=== PATIENT | male | born 1980 | race Caucasian/White ===

== ENCOUNTER 2016-11-02 17:21 | Emergency (ER) | payer OTHER ==
--- NOTE | 2016-11-02 20:18 | ED ORDER SUMMARY ---
..... Patient: SHYANN VERGARA OrderSheet [facility] VisitID: [id number] [address] [place] [address] 36y, M Registration Date/Time: 11/02/2016 ORDER SHEET Weight: 97.9 kg (stated) Allergies: None GENERAL ORDERS: US Scrotum/Testicular Urgent (17:53 11/02/2016 HBivens A.R.N.P.) (Ack 18:13 RKaruga) (19:18 RFay) CBC w Diff Urgent (17:53 11/02/2016 HBivens A.R.N.P.) (Ack 18:13 RKaruga) (19:28 SRoberts R.N.) CMP Urgent (17:53 11/02/2016 HBivens A.R.N.P.) (Ack 18:13 RKaruga) (19:28 SRoberts R.N.) UA-Culture if indicated Urgent (17:53 11/02/2016 HBivens A.R.N.P.) (Ack 18:13 RKaruga) (20:29 JDeElena R.N.) MEDICATION ORDERS: IV FLUIDS: ORDER SHEET NOTES: [Electronically signed by Tramaine Bishop R.N. (20:45 11/02/2016)] [Electronically signed by Amada TrinidadR.N.PYamini (22:02 11/02/2016)] [Electronically locked/signed by Tramaine Bishop R.N. (20:45 11/02/2016)]
--- NOTE | 2016-11-02 20:18 | ED CLINICAL REPORT ---
Clinical Report - Physicians/Mid Levels [facility] [address] [place] [address] 11/02/2016 17:23 Patient: SHYANN VERGARA Time Seen: 17:29; upon arrival, initial patient contact, initial documentation, patient care assumed. Arrived- By private vehicle. Historian- patient and significant other. HISTORY OF PRESENT ILLNESS Chief Complaint: RIGHT TESTICULAR PAIN. This started about 45 days ago and is still present (came back last night). The problem is described as mild. It was abrupt in onset and has been intermittent. No penile discharge, discomfort with urination, urinary frequency, urgency of urination or Mobley catheter problem. No inguinal swelling or problem with the foreskin. He has had mild testicular pain, involving the right testicle with swelling. No redness. Able to void. Not voiding only small amounts. The patient has had unprotected intercourse with a single partner several times. Similar symptoms previously: Frequently, as bad. Recent medical care: The patient was seen recently in the office. ( was seen x3 at [facility], blood and urine done, can't find what is wrong, urine showed blood). REVIEW OF SYSTEMS No fever, flank pain, hematuria, abdominal pain or vomiting. No diarrhea, chest pain or difficulty breathing. All systems otherwise negative, except as recorded above. PAST HISTORY See nurses notes. ( PROBLEMS: MRSA Infection. Pneumonia. Vasectomy. --17:54 Angelo Davenport R.N.). SOCIAL HISTORY Never smoker. Occasional alcohol use. No drug use. No recent travel. Is a local resident. FAMILY HISTORY Negative. ADDITIONAL NOTES The nursing notes have been reviewed with agreement regarding the chief complaint, HPI, ROS, PMH and patient medications and allergies. PHYSICAL EXAM Vital Signs: 11/02/2016 17:48 BP: 123/74. HR: 77. RR: 20. O2 saturation: 97%. Temp: 98.7 F. Have been reviewed as normal and appear to be correct. Appearance: Alert. Oriented X3. No acute distress. ENT: Normal external inspection. Pharynx normal. Neck: Neck supple. CVS: Heart sounds normal. Respiratory: No respiratory distress. Breath sounds normal. Abdomen: Soft and nontender. Bowel sounds normal. No organomegaly. No mass. Back: Normal external inspection. : Normal genitalia. Testes descended. (security assessor RN Angelo). Skin: Skin warm and dry. Normal skin color. No rash. Normal skin turgor. Extremities: Extremities exhibit normal ROM. No lower extremity edema. Neuro: Oriented X 3. No motor deficit. No sensory deficit. LABS, X-RAYS, AND EKG Testicular Scan: Normal study. Normal. (verbal report from [employer]). Interpretation time: 1908. Laboratory Tests: UA-Culture if indicated: (SARAH: 11/02/2016 18:15) ( [facility] 11/02/2016 20:02) Final results Test Result Flag Units (Reference) URINE COLOR YELLOW URINE APPEARANCE CLEAR URINE GLUCOSE NEGATIVE (NEGATIVE) URINE BILIRUBIN NEGATIVE (NEGATIVE) URINE KETONE NEGATIVE (NEGATIVE) URINE SPECIFIC GRAVITY 1.020 (1.010-1.030) URINE PH 6.5 (5.0-8.0) URINE PROTEIN NEGATIVE (NEGATIVE) URINE UROBILINOGEN 0.2 EU/dL (0.2-1.0) URINE NITRITE NEGATIVE (NEGATIVE) URINE BLOOD 1+ (NEGATIVE) URINE LEUK ESTERASE NEGATIVE (NEGATIVE) URINE RBC 0-1 rbc/hpf (0-1) URINE WBC RARE wbc/hpf (0-1) URINE EPITHELIAL CELLS RARE EPI/hpf (0-5) URINE BACTERIA NONE SEEN (NONE SEEN) URINE COMMENT CULT NOT INDICATED URINE CULTURES ARE SET-UP BASED ON THE FOLLOWING CRITERIA:POSITIVE NITRITEPOSITIVE LEUKOCYTE ESTERASEGREATER THAN 10 WHITE BLOOD CELLSMODERATE (2+) OR GREATER BACTERIA CBC w Diff: (SARAH: 11/02/2016 18:15) ( [facility] 11/02/2016 18:43) Final results Test Result Flag Units (Reference) WHITE BLOOD COUNT 6.6 K/uL (4.5-11.5) RED BLOOD COUNT 4.90 M/uL (4.50-5.90) HEMOGLOBIN 14.4 gm/dL (13.5-17.5) HEMATOCRIT 41.9 % (41.0-53.0) MEAN CELL VOLUME 86 fL (80-100) MEAN CORPUSCULAR HGB 29 pg (26-34) MEAN CORPUSCULAR HGB CONC 34 g/dL (31-37) RED CELL DISTRIBUTION WIDTH 12.8 % (11.6-14.8) PLATELET COUNT 273 K/uL (150-400) NEUTROPHIL % 53.4 % (50-75) LYMPH % 35.3 % (25-40) MONO % 9.3 % (3-14) EOSINOPHIL % 1.4 % (0-4) BASOPHIL % 0.6 % (0-2) CMP: (SARAH: 11/02/2016 18:15) ( MsgRcvd 11/02/2016 18:55) Final results Test Result Flag Units (Reference) GLUCOSE 115 H mg/dL (70-110) BUN 12 mg/dL (7-18) CREATININE 0.9 mg/dL (0.6-1.3) Estimated GFR >60 mL/min Estimated GFR- >60 mL/min Note: Persistent reduction over 3 months in eGFR<60 mL/min/1.73 m2 defines CKD. Patients with eGFR values>=60 mL/min/1.73 m2 may also have CKD if evidence ofpersistent proteinuria. Additional information may be foundat www.kidney.org. SODIUM 144 mmol/L (136-145) POTASSIUM 4.1 mmol/L (3.5-5.1) CHLORIDE 107 mmol/L (98-107) CARBON DIOXIDE 28 mmol/L (21-32) CALCIUM 8.3 L mg/dL (8.5-10.1) TOTAL PROTEIN 7.0 g/dL (6.4-8.2) ALBUMIN 3.9 g/dL (3.3-5.0) BILIRUBIN, TOTAL 0.3 mg/dL (0.0-1.0) ALKALINE PHOSPHATASE 72 U/L (46-116) AST (SGOT) 18 U/L (15-37) ALT (SGPT) 43 U/L (12-78) . PROGRESS AND PROCEDURES Patient and family counseled in person regarding the patient's stable condition, test results and diagnosis. Differential Diagnosis: Other possible considerations: testicular torsion, epidydimitis, prostatitis, uti, kidney stone. Above considerations are based on history, physical exam and laboratory data. Differential diagnosis was discussed with patient. Disposition: Discharged home in good and unchanged condition (20:18). Condition: good and stable. CLINICAL IMPRESSION Acute pain in the right testicle. INSTRUCTIONS Warnings: GENERAL WARNINGS: Return or contact your physician immediately if your condition worsens or changes unexpectedly, if not improving as expected, or if other problems arise. Specifically return if problem worsens. Understanding of the discharge instructions verbalized by patient. Follow-up with: Brayden Martines MD, Urology, , [address] [address]; Maikel Morgan MD, Urology, , [address] [address] Follow up in about three days as needed. Call for an appointment. Summary of care provided to patient. (Electronically signed by Amada Trinidad A.R.N.P. 11/02/2016 22:02)
--- NOTE | 2016-11-02 20:18 | ED ORDER SUMMARY ---
..... Patient: SHYANN VERGARA OrderSheet [facility] VisitID: [id number] [address] [place] [address] 36y, M Registration Date/Time: 11/02/2016 ORDER SHEET Weight: 97.9 kg (stated) Allergies: None GENERAL ORDERS: US Scrotum/Testicular Urgent (17:53 11/02/2016 HBivens A.R.N.P.) (Ack 18:13 RKaruga) (19:18 RFay) CBC w Diff Urgent (17:53 11/02/2016 HBivens A.R.N.P.) (Ack 18:13 RKaruga) (19:28 SRoberts R.N.) CMP Urgent (17:53 11/02/2016 HBivens A.R.N.P.) (Ack 18:13 RKaruga) (19:28 SRoberts R.N.) UA-Culture if indicated Urgent (17:53 11/02/2016 HBivens A.R.N.P.) (Ack 18:13 RKaruga) (20:29 JDeElena R.N.) MEDICATION ORDERS: IV FLUIDS: ORDER SHEET NOTES: [Electronically signed by Tramaine Bishop R.N. (20:45 11/02/2016)] [Electronically signed by Amada TrinidadR.N.PYamini (22:02 11/02/2016)] [Electronically locked/signed by Tramaine Bishop R.N. (20:45 11/02/2016)]
--- NOTE | 2016-11-02 20:18 | ED NURSING NOTES ---
Clinical Report - Nurses [facility] [place] [address] [place] [address] 11/02/2016 17:23 Patient: SHYANN VERGARA TRIAGE Triage time 6. Acuity: LEVEL 3. Chief Complaint: TESTICULAR PAIN. --17:55 Angelo Davenport R.N. 17:48 11/02/16. BP: 123/74. HR: 77. RR: 20. O2 saturation: 97%. Temp: 98.7 F. --17:55 Angelo Davenport R.N. Alert. No acute distress. --17:56 Angelo Davenport R.N. Weight: 97.9 kg stated. Height/Length: 68 inches Per Patient. BMI: 32.8. --17:55 Angelo Davenport R.N. Medications None. --17:53 Angelo Davenport R.N. Allergies None. --17:53 Angelo Davenport R.N. History Arrived by private vehicle. Historian: patient. Accompanied by family. This started last night. ( intermittent pain and swelling in right testicle for 45 days.). SOCIAL HX: Alcohol use. --17:55 Angelo Davenport R.N. PROBLEMS: MRSA Infection. Pneumonia. Vasectomy. --17:54 Angelo Davenport R.N. Interventions ID band on patient. --17:55 Angelo Davenport R.N. PHYSICAL ASSESSMENT GENERAL / NEURO / PSYCH: Alert. Oriented X 4. Appears in no acute distress. GI / : ( Right testicle swollen and painful). --17:57 Angelo Davenport R.N. NURSING PROGRESS NOTES Patient gowned. Patient identifiers checked. Call light placed in reach. Bed placed in lowest position. --17:57 Angelo Davenport R.N. Care transferred and report given. ( Report to [place]). --19:20 Angelo Davenport R.N. Patient ID band checked for patient name: patient confirmed. Instructions provided to collect clean catch urine and patient verbalized understanding. Clean catch urine collected with return of yellow-colored clear urine; sample sent to lab for urinalysis and culture. Specimen labeled in the presence of the patient. --19:42 Monica Watson R.N. 19:15. Care transferred and report received (From AMIRA Stephens). --19:42 Monica Watson R.N. DISPOSITION / DISCHARGE Departure time: 20:37. --20:37 Tramaine Bishop R.N. Condition at departure: stable. The goals identified in the patient's plan of care were met. No learning barriers present. Discharge instructions provided and reviewed with the patient. Reviewed referral to a urologist. Patient verbalized understanding. Written instructions provided in [place]. ( Shyann verbalizes understanding of all d/c instructions including need to f/u with PCP and urologist. He has no questions and voices no concerns at this time.). The patient was discharged by the nurse practitioner. He was discharged home and accompanied by spouse. He left the Emergency Department ambulatory and via private vehicle. Spouse driving. PEDRO COMA SCORE: [place] Coma Scale: 15- eyes open spontaneously (4); best verbal response- oriented x 4 (5); best motor response- obeys commands (6). --20:45 Tramaine Bishop R.N. 20:35 11/02/16. BP: 136/75 (regular adult cuff) taken on the left arm, via an automated monitor, while sitting. HR: 83 (normal rate). RR: 14 (regular, unlabored and normal). O2 saturation: 98% on room air. Temp: 98 F (oral). Pain level now: 12/07. --20:45 Tramaine Bishop R.N. Locked/Released at 11/02/2016 20:45 by Tramaine Bishop R.N.
--- NOTE | 2016-11-02 20:18 | ED CLINICAL REPORT ---
Clinical Report - Physicians/Mid Levels [facility] [address] [place] [address] 11/02/2016 17:23 Patient: SHYANN VERGARA Time Seen: 17:29; upon arrival, initial patient contact, initial documentation, patient care assumed. Arrived- By private vehicle. Historian- patient and significant other. HISTORY OF PRESENT ILLNESS Chief Complaint: RIGHT TESTICULAR PAIN. This started about 45 days ago and is still present (came back last night). The problem is described as mild. It was abrupt in onset and has been intermittent. No penile discharge, discomfort with urination, urinary frequency, urgency of urination or Mobley catheter problem. No inguinal swelling or problem with the foreskin. He has had mild testicular pain, involving the right testicle with swelling. No redness. Able to void. Not voiding only small amounts. The patient has had unprotected intercourse with a single partner several times. Similar symptoms previously: Frequently, as bad. Recent medical care: The patient was seen recently in the office. ( was seen x3 at [facility], blood and urine done, can't find what is wrong, urine showed blood). REVIEW OF SYSTEMS No fever, flank pain, hematuria, abdominal pain or vomiting. No diarrhea, chest pain or difficulty breathing. All systems otherwise negative, except as recorded above. PAST HISTORY See nurses notes. ( PROBLEMS: MRSA Infection. Pneumonia. Vasectomy. --17:54 Angelo Davenport R.N.). SOCIAL HISTORY Never smoker. Occasional alcohol use. No drug use. No recent travel. Is a local resident. FAMILY HISTORY Negative. ADDITIONAL NOTES The nursing notes have been reviewed with agreement regarding the chief complaint, HPI, ROS, PMH and patient medications and allergies. PHYSICAL EXAM Vital Signs: 11/02/2016 17:48 BP: 123/74. HR: 77. RR: 20. O2 saturation: 97%. Temp: 98.7 F. Have been reviewed as normal and appear to be correct. Appearance: Alert. Oriented X3. No acute distress. ENT: Normal external inspection. Pharynx normal. Neck: Neck supple. CVS: Heart sounds normal. Respiratory: No respiratory distress. Breath sounds normal. Abdomen: Soft and nontender. Bowel sounds normal. No organomegaly. No mass. Back: Normal external inspection. : Normal genitalia. Testes descended. (boom stick man RN Angelo). Skin: Skin warm and dry. Normal skin color. No rash. Normal skin turgor. Extremities: Extremities exhibit normal ROM. No lower extremity edema. Neuro: Oriented X 3. No motor deficit. No sensory deficit. LABS, X-RAYS, AND EKG Testicular Scan: Normal study. Normal. (verbal report from [employer]). Interpretation time: 1908. Laboratory Tests: UA-Culture if indicated: (SARAH: 11/02/2016 18:15) ( [facility] 11/02/2016 20:02) Final results Test Result Flag Units (Reference) URINE COLOR YELLOW URINE APPEARANCE CLEAR URINE GLUCOSE NEGATIVE (NEGATIVE) URINE BILIRUBIN NEGATIVE (NEGATIVE) URINE KETONE NEGATIVE (NEGATIVE) URINE SPECIFIC GRAVITY 1.020 (1.010-1.030) URINE PH 6.5 (5.0-8.0) URINE PROTEIN NEGATIVE (NEGATIVE) URINE UROBILINOGEN 0.2 EU/dL (0.2-1.0) URINE NITRITE NEGATIVE (NEGATIVE) URINE BLOOD 1+ (NEGATIVE) URINE LEUK ESTERASE NEGATIVE (NEGATIVE) URINE RBC 0-1 rbc/hpf (0-1) URINE WBC RARE wbc/hpf (0-1) URINE EPITHELIAL CELLS RARE EPI/hpf (0-5) URINE BACTERIA NONE SEEN (NONE SEEN) URINE COMMENT CULT NOT INDICATED URINE CULTURES ARE SET-UP BASED ON THE FOLLOWING CRITERIA:POSITIVE NITRITEPOSITIVE LEUKOCYTE ESTERASEGREATER THAN 10 WHITE BLOOD CELLSMODERATE (2+) OR GREATER BACTERIA CBC w Diff: (SARAH: 11/02/2016 18:15) ( [facility] Final results Test Result Flag Units (Reference) WHITE BLOOD COUNT 6.6 K/uL (4.5-11.5) RED BLOOD COUNT 4.90 M/uL (4.50-5.90) HEMOGLOBIN 14.4 gm/dL (13.5-17.5) HEMATOCRIT 41.9 % (41.0-53.0) MEAN CELL VOLUME 86 fL (80-100) MEAN CORPUSCULAR HGB 29 pg (26-34) MEAN CORPUSCULAR HGB CONC 34 g/dL (31-37) RED CELL DISTRIBUTION WIDTH 12.8 % (11.6-14.8) PLATELET COUNT 273 K/uL (150-400) NEUTROPHIL % 53.4 % (50-75) LYMPH % 35.3 % (25-40) MONO % 9.3 % (3-14) EOSINOPHIL % 1.4 % (0-4) BASOPHIL % 0.6 % (0-2) CMP: (SARAH: 11/02/2016 18:15) ( MsgRcvd 11/02/2016 18:55) Final results Test Result Flag Units (Reference) GLUCOSE 115 H mg/dL (70-110) BUN 12 mg/dL (7-18) CREATININE 0.9 mg/dL (0.6-1.3) Estimated GFR >60 mL/min Estimated GFR- >60 mL/min Note: Persistent reduction over 3 months in eGFR<60 mL/min/1.73 m2 defines CKD. Patients with eGFR values>=60 mL/min/1.73 m2 may also have CKD if evidence ofpersistent proteinuria. Additional information may be foundat www.kidney.org. SODIUM 144 mmol/L (136-145) POTASSIUM 4.1 mmol/L (3.5-5.1) CHLORIDE 107 mmol/L (98-107) CARBON DIOXIDE 28 mmol/L (21-32) CALCIUM 8.3 L mg/dL (8.5-10.1) TOTAL PROTEIN 7.0 g/dL (6.4-8.2) ALBUMIN 3.9 g/dL (3.3-5.0) BILIRUBIN, TOTAL 0.3 mg/dL (0.0-1.0) ALKALINE PHOSPHATASE 72 U/L (46-116) AST (SGOT) 18 U/L (15-37) ALT (SGPT) 43 U/L (12-78) . PROGRESS AND PROCEDURES Patient and family counseled in person regarding the patient's stable condition, test results and diagnosis. Differential Diagnosis: Other possible considerations: testicular torsion, epidydimitis, prostatitis, uti, kidney stone. Above considerations are based on history, physical exam and laboratory data. Differential diagnosis was discussed with patient. Disposition: Discharged home in good and unchanged condition (20:18). Condition: good and stable. CLINICAL IMPRESSION Acute pain in the right testicle. INSTRUCTIONS Warnings: GENERAL WARNINGS: Return or contact your physician immediately if your condition worsens or changes unexpectedly, if not improving as expected, or if other problems arise. Specifically return if problem worsens. Understanding of the discharge instructions verbalized by patient. Follow-up with: Brayden Martines MD, Urology, , [address] [address]; Maikel Morgan MD, Urology, , [address] [address] Follow up in about three days as needed. Call for an appointment. Summary of care provided to patient. (Electronically signed by Amada Trinidad A.R.N.P. 11/02/2016 22:02)
--- NOTE | 2016-11-02 20:18 | ED NURSING NOTES ---
Clinical Report - Nurses [facility] [address] [place] [address] 11/02/2016 17:23 Patient: SHYANN VERGARA TRIAGE Triage time 6. Acuity: LEVEL 3. Chief Complaint: TESTICULAR PAIN. --17:55 Angelo Davenport R.N. 17:48 11/02/16. BP: 123/74. HR: 77. RR: 20. O2 saturation: 97%. Temp: 98.7 F. --17:55 Angelo Davenport R.N. Alert. No acute distress. --17:56 Angelo Davenport R.N. Weight: 97.9 kg stated. Height/Length: 68 inches Per Patient. BMI: 32.8. --17:55 Angelo Davenport R.N. Medications None. --17:53 Angelo Davenport R.N. Allergies None. --17:53 Angelo Davenport R.N. History Arrived by private vehicle. Historian: patient. Accompanied by family. This started last night. ( intermittent pain and swelling in right testicle for 45 days.). SOCIAL HX: Alcohol use. --17:55 Angelo Davenport R.N. PROBLEMS: MRSA Infection. Pneumonia. Vasectomy. --17:54 Angelo Davenport R.N. Interventions ID band on patient. --17:55 Angelo Davenport R.N. PHYSICAL ASSESSMENT GENERAL / NEURO / PSYCH: Alert. Oriented X 4. Appears in no acute distress. GI / : ( Right testicle swollen and painful). --17:57 Angelo Davenport R.N. NURSING PROGRESS NOTES Patient gowned. Patient identifiers checked. Call light placed in reach. Bed placed in lowest position. --17:57 Angelo Davenport R.N. Care transferred and report given. ( Report to [place]). --19:20 Angelo Davenport R.N. Patient ID band checked for patient name: patient confirmed. Instructions provided to collect clean catch urine and patient verbalized understanding. Clean catch urine collected with return of yellow-colored clear urine; sample sent to lab for urinalysis and culture. Specimen labeled in the presence of the patient. --19:42 Monica Watson R.N. 19:15. Care transferred and report received (From AMIRA Stephens). --19:42 Monica Watson R.N. DISPOSITION / DISCHARGE Departure time: 20:37. --20:37 Tramaine Bishop R.N. Condition at departure: stable. The goals identified in the patient's plan of care were met. No learning barriers present. Discharge instructions provided and reviewed with the patient. Reviewed referral to a urologist. Patient verbalized understanding. Written instructions provided in [place]. ( Shyann verbalizes understanding of all d/c instructions including need to f/u with PCP and urologist. He has no questions and voices no concerns at this time.). The patient was discharged by the nurse practitioner. He was discharged home and accompanied by spouse. He left the Emergency Department ambulatory and via private vehicle. Spouse driving. PEDRO COMA SCORE: [place] Coma Scale: 15- eyes open spontaneously (4); best verbal response- oriented x 4 (5); best motor response- obeys commands (6). --20:45 Tramiane Bishop R.N. 20:35 11/02/16. BP: 136/75 (regular adult cuff) taken on the left arm, via an automated monitor, while sitting. HR: 83 (normal rate). RR: 14 (regular, unlabored and normal). O2 saturation: 98% on room air. Temp: 98 F (oral). Pain level now: 12/07. --20:45 Tramaine Bishop R.N. Locked/Released at 11/02/2016 20:45 by Tramaine Bishop R.N.
--- NOTE | 2016-11-02 22:02 | ED MED RECONCILIATION SUMMARY ---
Patient: SHYANN VERGARA Medication Reconciliation Report [facility] VisitID: [id number] [address] [place] [address] 36y, M Registration Date/Time: 11/02/2016 Weight: 97.9 kg Height/Length: 68 in. BMI: 32.8 ALLERGIES: None The patient's Home Medications are listed below: NONE. The source(s) of the original Home Medication information: Not obtained. The following Medications were given to the patient in the Emergency Department: None. The following Medications were prescribed to the patient: None.
--- NOTE | 2016-11-02 22:02 | ED MAR SUMMARY ---
..... Medication Administration Record [facility] [address] [place], [place] [id number] Patient: SHYANN VERGARA Visit ID: [id number] 36y, M Weight: 97.9 kg Height/Length: 68 in BMI: 32.8 ALLERGIES: None
--- NOTE | 2016-11-02 22:02 | ED MAR SUMMARY ---
..... Medication Administration Record [facility] [address] [place], [place] [id number] Patient: SHYANN VERGARA Visit ID: [id number] 36y, M Weight: 97.9 kg Height/Length: 68 in BMI: 32.8 ALLERGIES: None
--- NOTE | 2016-11-02 22:02 | ED DISCHARGE INSTRUCTIONS ---
Patient: SHYANN VERGARA General Instructions [facility] VisitID: [id number] [address] [address] 36y, M Registration Date/Time: 11/02/2016 Acute pain in the right testicle. INSTRUCTIONS Warnings: GENERAL WARNINGS: Return or contact your physician immediately if your condition worsens or changes unexpectedly, if not improving as expected, or if other problems arise. Specifically return if problem worsens. Understanding of the discharge instructions verbalized by patient. Follow-up with: Brayden Martines MD, Urology, , [address] [facility] [address]; Maikel Morgan MD, Urology, , [address] [facility] [address] Follow up in about three days as needed. Call for an appointment. Summary of care provided to patient. ADDITIONAL INFORMATION Pain, Uncertain Cause [Acute] Pain is the bodys way of calling attention to a problem. Pain can be caused by many conditions - some minor, some serious. In your case, we were not able to find the exact cause for your pain. However, at this time there is no sign of any serious or life-threatening illness causing your pain. Sometimes more tests will be needed to determine the cause. Other times, just allowing more time to pass will either make it clear what the problem is, or the pain will go away by itself. Home Care: You may use acetaminophen (Tylenol) or ibuprofen (Motrin, Advil) to control pain, unless another medicine was prescribed. [NOTE: If you have chronic liver or kidney disease or ever had a stomach ulcer or GI bleeding, talk with your doctor before using these medicines.] Follow Up with your doctor or as advised by our staff. Get Prompt Medical Attention if any of the following occur: Changes in the pattern of your pain Appearance of new symptoms Fever of 100.4F (38C) or higher, or as directed by your healthcare provider You have been given the following additional information: Pain, Uncertain Cause (Acute) (Electronically signed by Amada Trinidad A.R.N.P. 11/02/2016 22:02)
--- NOTE | 2016-11-02 22:02 | ED DISCHARGE INSTRUCTIONS ---
Patient: SHYANN VERGARA General Instructions [facility] VisitID: [id number] [place] [address] 36y, M Registration Date/Time: 11/02/2016 Acute pain in the right testicle. INSTRUCTIONS Warnings: GENERAL WARNINGS: Return or contact your physician immediately if your condition worsens or changes unexpectedly, if not improving as expected, or if other problems arise. Specifically return if problem worsens. Understanding of the discharge instructions verbalized by patient. Follow-up with: Brayden Martines MD, Urology, , [address] [facility] [address]; Maikel Morgan MD, Urology, , [address] [facility] [address] Follow up in about three days as needed. Call for an appointment. Summary of care provided to patient. ADDITIONAL INFORMATION Pain, Uncertain Cause [Acute] Pain is the bodys way of calling attention to a problem. Pain can be caused by many conditions - some minor, some serious. In your case, we were not able to find the exact cause for your pain. However, at this time there is no sign of any serious or life-threatening illness causing your pain. Sometimes more tests will be needed to determine the cause. Other times, just allowing more time to pass will either make it clear what the problem is, or the pain will go away by itself. Home Care: You may use acetaminophen (Tylenol) or ibuprofen (Motrin, Advil) to control pain, unless another medicine was prescribed. [NOTE: If you have chronic liver or kidney disease or ever had a stomach ulcer or GI bleeding, talk with your doctor before using these medicines.] Follow Up with your doctor or as advised by our staff. Get Prompt Medical Attention if any of the following occur: Changes in the pattern of your pain Appearance of new symptoms Fever of 100.4F (38C) or higher, or as directed by your healthcare provider You have been given the following additional information: Pain, Uncertain Cause (Acute) (Electronically signed by Amada Trinidad A.R.N.P. 11/02/2016 22:02)
--- NOTE | 2016-11-02 22:02 | ED MED RECONCILIATION SUMMARY ---
Patient: SHYANN VERGARA Medication Reconciliation Report [facility] VisitID: [id number] [address] [place] [address] 36y, M Registration Date/Time: 11/02/2016 Weight: 97.9 kg Height/Length: 68 in. BMI: 32.8 ALLERGIES: None The patient's Home Medications are listed below: NONE. The source(s) of the original Home Medication information: Not obtained. The following Medications were given to the patient in the Emergency Department: None. The following Medications were prescribed to the patient: None.
--- NOTE | 2016-11-02 23:41 | DIAGNOSTIC IMAGING REPORT ---
PROCEDURE: US SCROTUM/TESTICLE INDICATION: SCROTAL SWELLING TECHNIQUE: Ramos scale and color Doppler sonographic images through the scrotum were obtained. COMPARISON: None. FINDINGS: RIGHT TESTICLE: Measures 4.7 x 2.7 x 3.1 cm with normal echo structure and vascularity. Normal epididymis. Mild hydrocele. LEFT TESTICLE: Measures 4.2 x 2.8 x 3.1 cm with normal vascularity and echo structure. 5 mm left epididymal cyst. Mild hydrocele. IMPRESSION: 1. Mild bilateral hydroceles
== END 2016-11-02 20:37 | disposition home or self-care (01) ==
LOC: ED SRH 17:21
DX: N50.811 Right testicular pain (principal)
CPT/HCPCS: 90004; 90100; 95059

== ENCOUNTER 2016-11-05 23:01 | Emergency (ER) | payer OTHER ==
--- NOTE | 2016-11-06 00:54 | ED CLINICAL REPORT ---
Clinical Report - Physicians/Mid Levels [facility] [address] [place] [address] 11/05/2016 23:01 Patient: SHYANN VERGARA Time Seen: 23:59. Arrived- By private vehicle. Historian- patient. HISTORY OF PRESENT ILLNESS Chief Complaint: RIGHT TESTICULAR PAIN. This started several days ago and is still present. The problem is described as severe. It was gradual in onset and has been constant. No urinary frequency, genital lesion, urgency of urination or inguinal swelling. He has had severe testicular pain, involving the right testicle with swelling. No redness. (he reports that the right testicular pain radiates up into the inguinal area). Recent medical care: The patient was seen recently at this facility. Seen for similar symptoms. Evaluation/treatment: testicular scan, labs and no treatment given. Diagnosis: (acute testicular pain). REVIEW OF SYSTEMS No chills, fever, sweats, calf pain or chest pain. No cough, difficulty breathing, pedal edema, palpitations or abdominal pain. No constipation, diarrhea, nausea, vomiting or urinary problems. All systems otherwise negative, except as recorded above. SOCIAL HISTORY Never smoker. Occasional alcohol use. No drug use. FAMILY HISTORY Denies family medical history. ADDITIONAL NOTES The nursing notes have been reviewed. PHYSICAL EXAM Vital Signs: 11/05/2016 23:18 BP: 134/83. HR: 73. RR: 18. O2 saturation: 98%. Temp: 97.5 F. Pain level now: 8/10. Have been reviewed. Appearance: Alert. ENT: Pharynx normal. Neck: Neck supple. CVS: Heart sounds normal. Respiratory: No respiratory distress. Breath sounds normal. Abdomen: Soft and nontender. Bowel sounds normal. No organomegaly. No mass. Femoral pulses equal. Back: Normal external inspection. No CVA tenderness. : Normal genitalia. Moderate tenderness of the right testicle. No scrotal mass or swelling or inguinal lymphadenopathy. Skin: Skin warm and dry. Normal skin color. Normal skin turgor. Extremities: Extremities exhibit normal ROM. No calf tenderness. No lower extremity edema. LABS, X-RAYS, AND EKG Laboratory Tests: UA-Culture if indicated: (SARAH: 11/06/2016 00:03) ( MsgRcvd 11/06/2016 00:16) Final results Test Result Flag Units (Reference) URINE COLOR YELLOW URINE APPEARANCE CLOUDY URINE GLUCOSE NEGATIVE (NEGATIVE) URINE BILIRUBIN NEGATIVE (NEGATIVE) URINE KETONE NEGATIVE (NEGATIVE) URINE SPECIFIC GRAVITY >= 1.030 (1.010-1.030) URINE PH 5.5 (5.0-8.0) URINE PROTEIN NEGATIVE (NEGATIVE) URINE UROBILINOGEN 0.2 EU/dL (0.2-1.0) URINE NITRITE NEGATIVE (NEGATIVE) URINE BLOOD 3+ (NEGATIVE) URINE LEUK ESTERASE NEGATIVE (NEGATIVE) URINE RBC >100 rbc/hpf (0-1) URINE WBC 3-5 wbc/hpf (0-1) URINE EPITHELIAL CELLS 0-1 EPI/hpf (0-5) URINE BACTERIA TRACE (<1+) (NONE SEEN) 2+ MUCOUSCALCIUM OXALATE CRYSTALS 3-5/HPF URINE COMMENT CULT NOT INDICATED URINE CULTURES ARE SET-UP BASED ON THE FOLLOWING CRITERIA:POSITIVE NITRITEPOSITIVE LEUKOCYTE ESTERASEGREATER THAN 10 WHITE BLOOD CELLSMODERATE (2+) OR GREATER BACTERIA . PROGRESS AND PROCEDURES Course of Care: Patient is stable. Patient/family counseled. Old medical records reviewed. Disposition: Discharged. Condition: stable. CLINICAL IMPRESSION Acute nontraumatic pain in the right testicle. Possible right orchitis INSTRUCTIONS No driving or operating machinery while taking medication. No strenuous activity until better. Drink plenty of fluids. Warnings: Further evaluation is necessary. GENERAL WARNINGS: Return or contact your physician immediately if your condition worsens or changes unexpectedly, if not improving as expected, or if other problems arise. Prescription Medications: Cipro 500 mg: take 1 tab orally every 12 hours for 10 days. Dispense twenty (20). No refills. Substitution is permissible. Ultram 50 mg tablets: take 1-2 orally every 6 hours as needed for pain. Dispense twenty (20). No refills. Substitution is permissible. Understanding of the discharge instructions verbalized by patient. Follow-up with: Brayden Martines MD, Urology, , [address] [facility], [address] Follow up in two days. Call for the next available appointment. (Electronically signed by Matt Worrell MD 11/06/2016 10:06)
--- NOTE | 2016-11-06 00:54 | ED ORDER SUMMARY ---
..... Patient: SHYANN VERGARA OrderSheet [facility] VisitID: [id number] [address] [place] [address] 36y, M Registration Date/Time: 11/05/2016 ORDER SHEET Weight: 97.9 kg Allergies: None GENERAL ORDERS: UA-Culture if indicated Urgent (00:02 11/06/2016 AMcQuoid ER Tech1 verbal order read back to Jose Luis FERRO) (0:04 Codie R.N.) (0:04 AMcQuoid ER Tech1) MEDICATION ORDERS: IV FLUIDS: ORDER SHEET NOTES: [Electronically signed by Matt Worrell MD (10:06 11/06/2016)] [Electronically signed by Nikia Cain R.N. (21:36 11/06/2016)] [Electronically locked/signed by Nikia Cain R.N. (21:36 11/06/2016)]
--- NOTE | 2016-11-06 00:54 | ED ORDER SUMMARY ---
..... Patient: SHYANN VERGARA OrderSheet [facility] VisitID: [id number] [address] [place] [address] 36y, M Registration Date/Time: 11/05/2016 ORDER SHEET Weight: 97.9 kg Allergies: None GENERAL ORDERS: UA-Culture if indicated Urgent (00:02 11/06/2016 AMcQuoid ER Tech1 verbal order read back to Jose Luis FERRO) (0:04 Codie R.N.) (0:04 AMcQuoid ER Tech1) MEDICATION ORDERS: IV FLUIDS: ORDER SHEET NOTES: [Electronically signed by Matt Worrell MD (10:06 11/06/2016)] [Electronically signed by Nikia Cain R.N. (21:36 11/06/2016)] [Electronically locked/signed by Nikia Cain R.N. (21:36 11/06/2016)]
--- NOTE | 2016-11-06 00:54 | ED NURSING NOTES ---
Clinical Report - Nurses [facility] [address] [place] [address] 11/05/2016 23:01 Patient: SHYANN VERGARA TRIAGE Triage time 23:18. Acuity: LEVEL 3. Chief Complaint: TESTICULAR PAIN. --23:21 TonyaB, R.N. 23:18 11/05/16. BP: 134/83. HR: 73. RR: 18. O2 saturation: 98%. Temp: 97.5 F. Pain level now: 02/06. --23:21 TonyaB, R.N. Weight: 97.9 kg. Height/Length: 68 inches. BMI: 32.8. --23:21 TonyaB, R.N. Medications None. --21:36 TonyaB, R.N. Allergies None. --21:36 TonyaB, R.N. History Arrived by private vehicle. Historian: patient. ( pt complains of right pelvic pain). Onset. (3 days). He has had inguinal swelling. 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 PAST MEDICAL HX: Immunizations not up to date. SOCIAL HX: Never smoker. Occasional alcohol use. No drug use. No infectious disease exposure. SELF HARM ASSESSMENT: A self harm assessment was performed. The patient answered "no" to the question "Have you recently felt down, depressed, or hopeless?", "Have you noticed less interest or pleasure in doing things?", "Do you have thoughts of harming or killing yourself?", "Are you here because you tried to hurt yourself?", "Have you ever tried to hurt yourself before today?", "Have you recently had thoughts about harming or killing others?" and "Do you have any dangerous items in your possession?". FALL RISK ASSESSMENT: Fall risk assessment completed. No fall risk identified. NUTRITIONAL RISK ASSESSMENT: The nutritional risk assessment revealed no deficiencies. FUNCTIONAL ASSESSMENT: Functional assessment: no impairments noted. LEARNING NEEDS ASSESSMENT: The learning needs assessment revealed no barriers. SKIN INTEGRITY ASSESSMENT: Skin integrity risk assessment completed. No skin integrity risk identified. --23:21 Tre Yuan Interventions ID band on patient. To treatment room. --23:21 Tre Yuan PHYSICAL ASSESSMENT Ambulatory to room. GENERAL / NEURO / PSYCH: Alert. Oriented X 4. Appears in no acute distress. HEENT: Mucous membranes are pink. RESPIRATORY: Respirations not labored. Breath sounds within normal limits. CVS: Normal heart rate and rhythm. Capillary refill less than 2 seconds. GI / : Abdomen soft. Bowel sounds within normal limits. Scrotal tenderness. SKIN: Skin is warm and dry. --23:22 Tre Yuan NURSING PROGRESS NOTES Patient gowned. Patient identifiers checked. Call light placed in reach. Side rails up. Bed placed in lowest position. Brakes of bed on. --23:22 Tre Yuan 00:02. Checked patient name and birthdate: patient confirmed. Clean catch urine collected; sample sent to lab. --00:03 McQuoid, Gia, ER Tech1. DISPOSITION / DISCHARGE Departure time: 101. No learning barriers present. Discharge instructions provided and reviewed with the patient and spouse. Reviewed medication(s) side effects and course information. Prescription(s) given to the patient. Note given. Patient verbalized understanding. Written instructions provided in Uzbek. The patient was discharged by the physician. He was discharged home and accompanied by spouse. He left the Emergency Department ambulatory and via private vehicle. --01:03 Ashish Gonzáles R.N. 01:01 11/06/16. BP: 129/79. HR: 69. RR: 17. O2 saturation: 99%. Temp: 97.8 F. Pain level now: 02/06. --01:03 Ashish Gonzáles R.N. Locked/Released at 11/06/2016 21:36 by Tre Yuan
--- NOTE | 2016-11-06 00:54 | ED CLINICAL REPORT ---
Clinical Report - Physicians/Mid Levels [facility] [address] [place] [address] 11/05/2016 23:01 Patient: SHYANN VERGARA Time Seen: 23:59. Arrived- By private vehicle. Historian- patient. HISTORY OF PRESENT ILLNESS Chief Complaint: RIGHT TESTICULAR PAIN. This started several days ago and is still present. The problem is described as severe. It was gradual in onset and has been constant. No urinary frequency, genital lesion, urgency of urination or inguinal swelling. He has had severe testicular pain, involving the right testicle with swelling. No redness. (he reports that the right testicular pain radiates up into the inguinal area). Recent medical care: The patient was seen recently at this facility. Seen for similar symptoms. Evaluation/treatment: testicular scan, labs and no treatment given. Diagnosis: (acute testicular pain). REVIEW OF SYSTEMS No chills, fever, sweats, calf pain or chest pain. No cough, difficulty breathing, pedal edema, palpitations or abdominal pain. No constipation, diarrhea, nausea, vomiting or urinary problems. All systems otherwise negative, except as recorded above. SOCIAL HISTORY Never smoker. Occasional alcohol use. No drug use. FAMILY HISTORY Denies family medical history. ADDITIONAL NOTES The nursing notes have been reviewed. PHYSICAL EXAM Vital Signs: 11/05/2016 23:18 BP: 134/83. HR: 73. RR: 18. O2 saturation: 98%. Temp: 97.5 F. Pain level now: 8/10. Have been reviewed. Appearance: Alert. ENT: Pharynx normal. Neck: Neck supple. CVS: Heart sounds normal. Respiratory: No respiratory distress. Breath sounds normal. Abdomen: Soft and nontender. Bowel sounds normal. No organomegaly. No mass. Femoral pulses equal. Back: Normal external inspection. No CVA tenderness. : Normal genitalia. Moderate tenderness of the right testicle. No scrotal mass or swelling or inguinal lymphadenopathy. Skin: Skin warm and dry. Normal skin color. Normal skin turgor. Extremities: Extremities exhibit normal ROM. No calf tenderness. No lower extremity edema. LABS, X-RAYS, AND EKG Laboratory Tests: UA-Culture if indicated: (SARAH: 11/06/2016 00:03) ( MsgRcvd 11/06/2016 00:16) Final results Test Result Flag Units (Reference) URINE COLOR YELLOW URINE APPEARANCE CLOUDY URINE GLUCOSE NEGATIVE (NEGATIVE) URINE BILIRUBIN NEGATIVE (NEGATIVE) URINE KETONE NEGATIVE (NEGATIVE) URINE SPECIFIC GRAVITY >= 1.030 (1.010-1.030) URINE PH 5.5 (5.0-8.0) URINE PROTEIN NEGATIVE (NEGATIVE) URINE UROBILINOGEN 0.2 EU/dL (0.2-1.0) URINE NITRITE NEGATIVE (NEGATIVE) URINE BLOOD 3+ (NEGATIVE) URINE LEUK ESTERASE NEGATIVE (NEGATIVE) URINE RBC >100 rbc/hpf (0-1) URINE WBC 3-5 wbc/hpf (0-1) URINE EPITHELIAL CELLS 0-1 EPI/hpf (0-5) URINE BACTERIA TRACE (<1+) (NONE SEEN) 2+ MUCOUSCALCIUM OXALATE CRYSTALS 3-5/HPF URINE COMMENT CULT NOT INDICATED URINE CULTURES ARE SET-UP BASED ON THE FOLLOWING CRITERIA:POSITIVE NITRITEPOSITIVE LEUKOCYTE ESTERASEGREATER THAN 10 WHITE BLOOD CELLSMODERATE (2+) OR GREATER BACTERIA . PROGRESS AND PROCEDURES Course of Care: Patient is stable. Patient/family counseled. Old medical records reviewed. Disposition: Discharged. Condition: stable. CLINICAL IMPRESSION Acute nontraumatic pain in the right testicle. Possible right orchitis INSTRUCTIONS No driving or operating machinery while taking medication. No strenuous activity until better. Drink plenty of fluids. Warnings: Further evaluation is necessary. GENERAL WARNINGS: Return or contact your physician immediately if your condition worsens or changes unexpectedly, if not improving as expected, or if other problems arise. Prescription Medications: Cipro 500 mg: take 1 tab orally every 12 hours for 10 days. Dispense twenty (20). No refills. Substitution is permissible. Ultram 50 mg tablets: take 1-2 orally every 6 hours as needed for pain. Dispense twenty (20). No refills. Substitution is permissible. Understanding of the discharge instructions verbalized by patient. Follow-up with: Brayden Martines MD, Urology, , [address] [facility], [address] Follow up in two days. Call for the next available appointment. (Electronically signed by Matt Worrell MD 11/06/2016 10:06)
--- NOTE | 2016-11-06 00:54 | ED NURSING NOTES ---
Clinical Report - Nurses [facility] [address] [place] [address] 11/05/2016 23:01 Patient: SHYANN VERGARA TRIAGE Triage time 23:18. Acuity: LEVEL 3. Chief Complaint: TESTICULAR PAIN. --23:21 TonyaB, R.N. 23:18 11/05/16. BP: 134/83. HR: 73. RR: 18. O2 saturation: 98%. Temp: 97.5 F. Pain level now: 02/06. --23:21 TonyaB, R.N. Weight: 97.9 kg. Height/Length: 68 inches. BMI: 32.8. --23:21 TonyaB, R.N. Medications None. --21:36 TonyaB, R.N. Allergies None. --21:36 TonyaB, R.N. History Arrived by private vehicle. Historian: patient. ( pt complains of right pelvic pain). Onset. (3 days). He has had inguinal swelling. 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 PAST MEDICAL HX: Immunizations not up to date. SOCIAL HX: Never smoker. Occasional alcohol use. No drug use. No infectious disease exposure. SELF HARM ASSESSMENT: A self harm assessment was performed. The patient answered "no" to the question "Have you recently felt down, depressed, or hopeless?", "Have you noticed less interest or pleasure in doing things?", "Do you have thoughts of harming or killing yourself?", "Are you here because you tried to hurt yourself?", "Have you ever tried to hurt yourself before today?", "Have you recently had thoughts about harming or killing others?" and "Do you have any dangerous items in your possession?". FALL RISK ASSESSMENT: Fall risk assessment completed. No fall risk identified. NUTRITIONAL RISK ASSESSMENT: The nutritional risk assessment revealed no deficiencies. FUNCTIONAL ASSESSMENT: Functional assessment: no impairments noted. LEARNING NEEDS ASSESSMENT: The learning needs assessment revealed no barriers. SKIN INTEGRITY ASSESSMENT: Skin integrity risk assessment completed. No skin integrity risk identified. --23:21 Tre Yuan Interventions ID band on patient. To treatment room. --23:21 Tre Yuan PHYSICAL ASSESSMENT Ambulatory to room. GENERAL / NEURO / PSYCH: Alert. Oriented X 4. Appears in no acute distress. HEENT: Mucous membranes are pink. RESPIRATORY: Respirations not labored. Breath sounds within normal limits. CVS: Normal heart rate and rhythm. Capillary refill less than 2 seconds. GI / : Abdomen soft. Bowel sounds within normal limits. Scrotal tenderness. SKIN: Skin is warm and dry. --23:22 Tre Yuan NURSING PROGRESS NOTES Patient gowned. Patient identifiers checked. Call light placed in reach. Side rails up. Bed placed in lowest position. Brakes of bed on. --23:22 Tre Yuan 00:02. Checked patient name and birthdate: patient confirmed. Clean catch urine collected; sample sent to lab. --00:03 McQuoid, Gia, ER Tech1. DISPOSITION / DISCHARGE Departure time: 101. No learning barriers present. Discharge instructions provided and reviewed with the patient and spouse. Reviewed medication(s) side effects and course information. Prescription(s) given to the patient. Note given. Patient verbalized understanding. Written instructions provided in Swedish. The patient was discharged by the physician. He was discharged home and accompanied by spouse. He left the Emergency Department ambulatory and via private vehicle. --01:03 Ashish Gonzáles R.N. 01:01 11/06/16. BP: 129/79. HR: 69. RR: 17. O2 saturation: 99%. Temp: 97.8 F. Pain level now: 02/06. --01:03 Ashish Gonzáles R.N. Locked/Released at 11/06/2016 21:36 by Tre Yuan
--- NOTE | 2016-11-06 21:36 | ED MAR SUMMARY ---
..... Medication Administration Record [facility] [address] [place], [place] [id number] Patient: SHYANN VERGARA Visit ID: [id number] 36y, M Weight: 97.9 kg Height/Length: 68 in BMI: 32.8 ALLERGIES: None
--- NOTE | 2016-11-06 21:36 | ED DISCHARGE INSTRUCTIONS ---
Patient: SHYANN VERGARA General Instructions [facility] VisitID: [id number] [address] [place] [address] 36y, M Registration Date/Time: 11/05/2016 Acute nontraumatic pain in the right testicle. INSTRUCTIONS No driving or operating machinery while taking medication. No strenuous activity until better. Drink plenty of fluids. Warnings: Further evaluation is necessary. GENERAL WARNINGS: Return or contact your physician immediately if your condition worsens or changes unexpectedly, if not improving as expected, or if other problems arise. Prescription Medications: Cipro 500 mg: take 1 tab orally every 12 hours for 10 days. Dispense twenty (20). No refills. Substitution is permissible. Ultram 50 mg tablets: take 1-2 orally every 6 hours as needed for pain. Dispense twenty (20). No refills. Substitution is permissible. Understanding of the discharge instructions verbalized by patient. Follow-up with: Brayden Martines MD, Urology, , [address] [facility], [id number] Follow up in two days. Call for the next available appointment. ADDITIONAL INFORMATION Pain, Uncertain Cause [Acute] Pain is the bodys way of calling attention to a problem. Pain can be caused by many conditions - some minor, some serious. In your case, we were not able to find the exact cause for your pain. However, at this time there is no sign of any serious or life-threatening illness causing your pain. Sometimes more tests will be needed to determine the cause. Other times, just allowing more time to pass will either make it clear what the problem is, or the pain will go away by itself. Home Care: You may use acetaminophen (Tylenol) or ibuprofen (Motrin, Advil) to control pain, unless another medicine was prescribed. [NOTE: If you have chronic liver or kidney disease or ever had a stomach ulcer or GI bleeding, talk with your doctor before using these medicines.] Follow Up with your doctor or as advised by our staff. Get Prompt Medical Attention if any of the following occur: Changes in the pattern of your pain Appearance of new symptoms Fever of 100.4F (38C) or higher, or as directed by your healthcare provider Orchitis Orchitis is a bacterial or viral infection in 1 or both testicles. Orchitis is caused by one of the following: Epididymitis. The epididymis is the duct that carries semen out of the testicle to the urethra (tract that passes urine). If the epididymis becomes infected, bacteria can spread back to the testicle. A sexually transmitted disease (STD) such as Gonorrhea or Chlamydia is a common cause of epididymitis and orchitis. Prostate infection. The prostate gland surrounds a portion of the urethra. An infection in the prostate gland can spread to the testicle. Mumps. This is the most common viral illness causing orchitis. One third of males over 10 years old with mumps will get mumps orchitis. One half of orchitis infections lead to shrinking (atrophy) of the involved testicle. Infertility is a rare complication.It occurs only if both testicles are affected. Orchitis causes pain or heaviness in 1 or both testicles.This pain may spread to the lower abdomen. The testicle is tender, swollen.The skin of the scrotum may become red or purplish. You notice blood in your semen. Other symptoms include high fever, nausea, vomiting and pain with urination or intercourse. Treatment of bacterial orchitis consists of antibiotics for 10 days. Treatment of viral (mumps) orchitis is aimed at symptom relief only. It usually takes 1-3 weeks for mumps orchitis to go away. Home Care If antibiotics were prescribed take them all, even if you are feeling better before you finish them. You may use acetaminophen (Tylenol) or ibuprofen (Motrin, Advil) to control pain, unless another medicine was prescribed. [NOTE: If you have chronic liver or kidney disease or ever had a stomach ulcer or GI bleeding, talk with your doctor before using these medicines.] Elevate your scrotum. Use snug-fitting briefs or an athletic supporter. To reduce pain and swelling, place an ice pack (ice cubes in a plastic bag, wrapped in a towel) over the scrotum for 20 minutes every 2 hours during the first day. Continue with ice packs 3-4 times a day for the next two days, then as needed for the relief of pain and swelling. Follow-Up with your doctor after you finish all antibiotics. If a culture was taken, call in two days for the results. Use condoms or do not have sexual relations until results are back. If an STD was diagnosed, continue this protection until both you and your sexual partner complete treatment. Get Prompt Medical Attention if any of the following occur: Continued nausea or vomiting Weakness, dizziness or fainting Difficulty passing urine Fever of 100.4F (38C) or higher, or as directed by your healthcare provider Increasing pain and swelling in one or both testicles Ciprofloxacin Hydrochloride Oral tablet What is this medicine? CIPROFLOXACIN (sip aleena FLOX a sin) is a quinolone antibiotic. It is used to treat certain kinds of bacterial infections. It will not work for colds, flu, or other viral infections. How should I use this medicine? Take this medicine by mouth with a glass of water. Follow the directions on the prescription label. Take your medicine at regular intervals. Do not take your medicine more often than directed. Take all of your medicine as directed even if you think your are better. Do not skip doses or stop your medicine early. You can take this medicine with food or on an empty stomach. It can be taken with a meal that contains dairy or calcium, but do not take it alone with a dairy product, like milk or yogurt or calcium-fortified juice. A special MedGuide will be given to you by the pharmacist with each prescription and refill. Be sure to read this information carefully each time. Talk to your peripheral equipment operator regarding the use of this medicine in children. Special care may be needed. What side effects may I notice from receiving this medicine? Side effects that you should report to your doctor or health family day care worker as soon as possible: - allergic reactions like skin rash, itching or hives, swelling of the face, lips, or tongue - breathing problems - confusion, nightmares or hallucinations - feeling faint or lightheaded, falls - irregular heartbeat - joint, muscle or tendon pain or swelling - pain or trouble passing urine -persistent headache with or without blurred vision - redness, blistering, peeling or loosening of the skin, including inside the mouth - seizure - unusual pain, numbness, tingling, or weakness Side effects that usually do not require medical attention (report to your doctor or health family day care worker if they continue or are bothersome): - diarrhea - nausea or stomach upset - white patches or sores in the mouth What may interact with this medicine? Do not take this medicine with any of the following medications: cisapride droperidol terfenadine tizanidine This medicine may also interact with the following medications: antacids caffeine cyclosporin didanosine (ddI) buffered tablets or powder medicines for diabetes medicines for inflammation like ibuprofen, naproxen methotrexate multivitamins omeprazole phenytoin probenecid sucralfate theophylline warfarin What if I miss a dose? If you miss a dose, take it as soon as you can. If it is almost time for your next dose, take only that dose. Do not take double or extra doses. Where should I keep my medicine? Keep out of the reach of children. Store at room temperature below 30 degrees C (86 degrees F). Keep container tightly closed. Throw away any unused medicine after the expiration date. What should I tell my health care provider before I take this medicine? They need to know if you have any of these conditions: -bone problems -cerebral disease -joint problems -irregular heartbeat -kidney disease -liver disease -myasthenia gravis -seizure disorder -tendon problems -an unusual or allergic reaction to ciprofloxacin, other antibiotics or medicines, foods, dyes, or preservatives - or trying to get -breast-feeding What should I watch for while using this medicine? Tell your doctor or health family day care worker if your symptoms do not improve. Do not treat diarrhea with over the counter products. Contact your doctor if you have diarrhea that lasts more than 2 days or if it is severe and watery. You may get drowsy or dizzy. Do not drive, use machinery, or do anything that needs mental alertness until you know how this medicine affects you. Do not stand or sit up quickly, especially if you are an older patient. This reduces the risk of dizzy or fainting spells. This medicine can make you more sensitive to the sun. Keep out of the sun. If you cannot avoid being in the sun, wear protective clothing and use sunscreen. Do not use sun lamps or tanning beds/booths. Avoid antacids, aluminum, calcium, iron, magnesium, and zinc products for 6 hours before and 2 hours after taking a dose of this medicine. Tramadol Hydrochloride Oral tablet What is this medicine? TRAMADOL (TRA ma dole) is a pain reliever. It is used to treat moderate to severe pain in adults. How should I use this medicine? Take this medicine by mouth with a full glass of water. Follow the directions on the prescription label. If the medicine upsets your stomach, take it with food or milk. Do not take more medicine than you are told to take. Talk to your peripheral equipment operator regarding the use of this medicine in children. Special care may be needed. What side effects may I notice from receiving this medicine? Side effects that you should report to your doctor or health family day care worker as soon as possible: allergic reactions like skin rash, itching or hives, swelling of the face, lips, or tongue breathing difficulties, wheezing confusion itching light headedness or fainting spells redness, blistering, peeling or loosening of the skin, including inside the mouth seizures Side effects that usually do not require medical attention (report to your doctor or health family day care worker if they continue or are bothersome): constipation dizziness drowsiness headache nausea, vomiting What may interact with this medicine? Do not take this medicine with any of the following medications: MAOIs like Carbex, Eldepryl, Marplan, Nardil, and Parnate This medicine may also interact with the following medications: alcohol or medicines that contain alcohol antihistamines benzodiazepines bupropion carbamazepine or oxcarbazepine clozapine cyclobenzaprine digoxin furazolidone linezolid medicines for depression, anxiety, or psychotic disturbances medicines for migraine headache like almotriptan, eletriptan, frovatriptan, naratriptan, rizatriptan, sumatriptan, zolmitriptan medicines for pain like pentazocine, buprenorphine, butorphanol, meperidine, nalbuphine, and propoxyphene medicines for sleep muscle relaxants naltrexone phenobarbital phenothiazines like perphenazine, thioridazine, chlorpromazine, mesoridazine, fluphenazine, prochlorperazine, promazine, and trifluoperazine procarbazine warfarin What if I miss a dose? If you miss a dose, take it as soon as you can. If it is almost time for your next dose, take only that dose. Do not take double or extra doses. Where should I keep my medicine? Keep out of the reach of children. Store at room temperature between 15 and 30 degrees C (59 and 86 degrees F). Keep container tightly closed. Throw away any unused medicine after the expiration date. What should I tell my health care provider before I take this medicine? They need to know if you have any of these conditions: brain tumor depression drug abuse or addiction head injury if you frequently drink alcohol containing drinks kidney disease or trouble passing urine liver disease lung disease, asthma, or breathing problems seizures or epilepsy suicidal thoughts, plans, or attempt; a previous suicide attempt by you or a family member an unusual or allergic reaction to tramadol, codeine, other medicines, foods, dyes, or preservatives or trying to get breast-feeding What should I watch for while using this medicine? Tell your doctor or health family day care worker if your pain does not go away, if it gets worse, or if you have new or a different type of pain. You may develop tolerance to the medicine. Tolerance means that you will need a higher dose of the medicine for pain relief. Tolerance is normal and is expected if you take this medicine for a long time. Do not suddenly stop taking your medicine because you may develop a severe reaction. Your body becomes used to the medicine. This does NOT mean you are addicted. Addiction is a behavior related to getting and using a drug for a non-medical reason. If you have pain, you have a medical reason to take pain medicine. Your doctor will tell you how much medicine to take. If your doctor wants you to stop the medicine, the dose will be slowly lowered over time to avoid any side effects. You may get drowsy or dizzy. Do not drive, use machinery, or do anything that needs mental alertness until you know how this medicine affects you. Do not stand or sit up quickly, especially if you are an older patient. This reduces the risk of dizzy or fainting spells. Alcohol can increase or decrease the effects of this medicine. Avoid alcoholic drinks. You may have constipation. Try to have a bowel movement at least every 2 to 3 days. If you do not have a bowel movement for 3 days, call your doctor or health family day care worker. Your mouth may get dry. Chewing sugarless gum or sucking hard candy, and drinking plenty of water may help. Contact your doctor if the problem does not go away or is severe. You have been given the following additional information: Pain, Uncertain Cause (Acute) Orchitis Ciprofloxacin Hydrochloride Oral tablet Tramadol Hydrochloride Oral tablet No driving or operating machinery while taking medication. No strenuous activity until better. (Electronically signed by Matt Worrell MD 11/06/2016 10:06)
--- NOTE | 2016-11-06 21:36 | ED MED RECONCILIATION SUMMARY ---
Patient: SHYANN VERGARA Medication Reconciliation Report [facility] VisitID: [id number] [address] [place] [address] 36y, M Registration Date/Time: 11/05/2016 Weight: 97.9 kg Height/Length: 68 in. BMI: 32.8 ALLERGIES: None The patient's Home Medications are listed below: NONE. The source(s) of the original Home Medication information: Not obtained. The following Medications were given to the patient in the Emergency Department: None. The following Medications were prescribed to the patient: Cipro 500 mg: take 1 tab orally every 12 hours for 10 days. Dispense twenty (20). No refills. Substitution is permissible. -- Matt Worrell MD Ultram 50 mg tablets: take 1-2 orally every 6 hours as needed for pain. Dispense twenty (20). No refills. Substitution is permissible. -- Matt Worrell MD
--- NOTE | 2016-11-06 21:36 | ED MAR SUMMARY ---
..... Medication Administration Record [facility] [address] [place], [place] [id number] Patient: SHYANN VERGARA Visit ID: [id number] 36y, M Weight: 97.9 kg Height/Length: 68 in BMI: 32.8 ALLERGIES: None
--- NOTE | 2016-11-06 21:36 | ED MED RECONCILIATION SUMMARY ---
Patient: SHYANN VERGARA Medication Reconciliation Report [facility]erg[facility] VisitID: [id number] [address] [place] [address] 36y, M Registration Date/Time: 11/05/2016 Weight: 97.9 kg Height/Length: 68 in. BMI: 32.8 ALLERGIES: None The patient's Home Medications are listed below: NONE. The source(s) of the original Home Medication information: Not obtained. The following Medications were given to the patient in the Emergency Department: None. The following Medications were prescribed to the patient: Cipro 500 mg: take 1 tab orally every 12 hours for 10 days. Dispense twenty (20). No refills. Substitution is permissible. -- Matt Worrell MD Ultram 50 mg tablets: take 1-2 orally every 6 hours as needed for pain. Dispense twenty (20). No refills. Substitution is permissible. -- Matt Worrell MD
== END 2016-11-06 01:02 | disposition home or self-care (01) ==
LOC: ED SRH 23:01
DX: N50.811 Right testicular pain (principal)
CPT/HCPCS: 90004